=== PATIENT | female | born 1950 | race Caucasian/White ===

== ENCOUNTER → 2018-03-07 | Outpatient (CLI) | payer OTHER ==
[~2018-03-07] MED LIST: ALPR-429 PO; ARI2 PO; ATOR20TA22 PO; ATOR20TA65 PO; CHOL500045 PO; DULO60CA56 PO; LEVO-3 PO; LISI-374 PO; MECL25TA9 PO; METF-411 PO; METF-421 PO; ONDA4TAB9 PO; PROM-110 PO; TRAM300T5 PO; UBID100C48 PO; UBID400C2 PO; ZALE10CA95 PO; [UNRECOGNIZED DRUG - CODE] PO; [UNRECOGNIZED DRUG - CODE] PO
--- NOTE | 2018-03-12 18:45 | RT HOLTER TEST ---
[place] [facility] [place] NAME[place] GERALDO BENAVIDES : [id number] MR: [id number]: [id number] EXAM DATE: ORDERING PHYSICIAN: ALLISON MEHTA TECHNOLOGIST: Vicente-berta date: 2018-03-07 11:00:00 Duration: 47:59:00 Test Indications: palpitations Medications: none on diary [id number] QRS complexes 302 Ventricular ectopics which represent <1 % of total QRS comp. 40 Supraventricular ectopics which represent <1 % of total QRS comp. * Paced QRS complexes which represent % of total QRS comp. VENTRICULAR ECTOPY 300 Isolated 0 Bigeminal Cycles 1 Couplets 0 Runs 0 Beats in Runs * Beats LONGEST at * BPM at :: -- * Beats FASTEST at * BPM at :: -- SUPRAVENTRICULAR ECTOPY 24 Isolated 3 Couplets 3 Runs 10 Beats in Runs 4 Beats LONGEST at 178 BPM at 15:20:32 2018-03-08 4 Beats FASTEST at 178 BPM at 15:20:32 2018-03-08 HEART RATES 54 MIN at 08:48:53 2018-03-08 75 AVG 123 MAX at 16:17:14 2018-03-07 LONGEST RR 1.488 secs at 19:02:26 2018-03-07 S-T LEVELS Channel 1 -12.800 mm MIN at 11:00:00 2018-03-07 -12.800 mm MAX at 11:00:00 2018-03-07 Channel 2 -12.800 mm MIN at 11:00:00 2018-03-07 -12.800 mm MAX at 11:00:00 2018-03-07 Channel 3 -12.800 mm MIN at 11:00:00 2018-03-07 -12.800 mm MAX at 11:00:00 2018-03-07 The patient had two symptomatic events. In both, there was a sinus tachycardia at a rate of 118 beat s per minute (bpm) and 116 bpm, respectively. The patient had an asymptomatic event of supraventricular tachycardia of 4 beats at 178 bpm. She w as predominantly in a sinus rhythm but had occasional ventricular ectopy and rare supraventricular ectopy. Confirmed by HAILEE TANNER ([id number]) on 03/12/2018 6:44:57 PM Referred By: Overread By: HAILEE TANNER
== END ==
LOC: RESP 10:44
PROVIDERS: ATTEND Physician Assistant
DX: R00.2 Palpitations (principal)
CPT/HCPCS: 93225; 93226